=== PATIENT | male | born 1975 | race Two or more races ===

== ENCOUNTER → 2016-11-09 | Outpatient (CLI) | payer OTHER | LOC: BRMIMAGING 10:34 | PROVIDERS: ATTEND Specialist | DX: S69.91XA Unspecified injury of right wrist, hand and finger(s), initial encounter (principal); S59.902A Unspecified injury of left elbow, initial encounter; S69.92XA Unspecified injury of left wrist, hand and finger(s), initial encounter | CPT/HCPCS: 73080-PO; 73110-PO; 73130-PO ==